=== PATIENT | male | born 1945 | race Caucasian/White ===

== ENCOUNTER → 2016-09-28 | Outpatient (CLI) | payer MEDICARE ==
[2016-09-28 08:52] LABS: ALBUMIN 4.2 g/dL (3.4-5.0); ANION GAP 16.9 MEQ/L (3-15); CALCULATED IONIZED CALCIUM 4.4 mg/dL (3.8-4.6); TOTAL PROTEIN 6.9 g/dL (6.4-8.5)
[2016-09-28 10:06] LABS: BILIRUBIN,URINE Negative (Negative); COLOR,URINE Yellow; GLUCOSE, URINE (UA) Trace (Negative); LEUKOCYTE ESTERASE ,URINE Trace (Negative); UROBILINOGEN,URINE 0.2 mg/dL (0.2-1.0)
[2016-09-28 10:40] LABS: CLARITY,URINE Slightly Cloudy
[2016-09-28 10:42] LABS: URINE CENTRIFUGED VOLUME 12 mL
== END ==
LOC: LAB 08:00
PROVIDERS: ATTEND Internal Medicine Cardiovascular Disease
DX: Z51.81 Encounter for therapeutic drug level monitoring (principal); Z79.01 Long term (current) use of anticoagulants; R30.0 Dysuria; E11.9 Type 2 diabetes mellitus without complications; I25.10 Atherosclerotic heart disease of native coronary artery without angina pectoris; E78.2 Mixed hyperlipidemia; Z79.899 Other long term (current) drug therapy; I10 Essential (primary) hypertension
CPT/HCPCS: 36415; 80053; 81003; 81015; 82550; 83036; 83721; 84100; 84478; 85610; 87077; 87088; 87186

== ENCOUNTER → 2016-10-14 | Outpatient (REF) | payer MEDICARE | LOC: LAB 14:00 | PROVIDERS: ATTEND Internal Medicine | DX: R30.0 Dysuria (principal) | CPT/HCPCS: 87077; 87088; 87186 ==

== ENCOUNTER → 2016-10-28 | Outpatient (CLI) | payer MEDICARE ==
[2016-10-28 09:05] LABS: ANION GAP 15.8 MEQ/L (3-15)
[2016-10-28 11:03] LABS: BILIRUBIN,URINE Negative (Negative); CLARITY,URINE Clear; COLOR,URINE Yellow; GLUCOSE, URINE (UA) Negative (Negative); LEUKOCYTE ESTERASE ,URINE Negative (Negative); PH,URINE 5.5 (5.0 - 8.0); UROBILINOGEN,URINE 0.2 mg/dL (0.2-1.0)
[2016-10-28 11:53] LABS: URINE CENTRIFUGED VOLUME 12 mL
== END ==
LOC: LAB 08:30
PROVIDERS: ATTEND Internal Medicine
DX: I25.10 Atherosclerotic heart disease of native coronary artery without angina pectoris (principal); E11.9 Type 2 diabetes mellitus without complications
CPT/HCPCS: 36415; 80048; 81003; 81015

== ENCOUNTER → 2016-11-03 | Outpatient (CLI) | payer MEDICARE | LOC: RAD 15:49 | PROVIDERS: ATTEND Internal Medicine | DX: R04.2 Hemoptysis (principal) | CPT/HCPCS: 71020 ==

== ENCOUNTER → 2016-11-03 | Outpatient (REF) | payer MEDICARE ==
[2016-11-03 16:54] LABS: BASOPHILS % (AUTO) 0 % (0-2); EOSINOPHILS # (AUTO) 0.3 10^3uL; EOSINOPHILS % (AUTO) 4 % (0-4); LYMPHOCYTES # (AUTO) 0.8 X10^3; MEAN CORPUSCULAR HEMOGLOBIN 28.8 PG (26.0-34.0); MEAN CORPUSCULAR HGB CONC 34.3 g/dL (31.0-37.0); MEAN CORPUSCULAR VOLUME 84 FL (80-100); MEAN PLATELET VOLUME 11.2 FL (6.0-9.5); MONOCYTES # (AUTO) 0.9 X10^3; MONOCYTES % (AUTO) 13 % (3-11); NEUTROPHILS # (AUTO) 5.3 X10^3; NEUTROPHILS % (AUTO) 72 % (51-67); PLATELET COUNT 239 10^3uL (150-450); WHITE BLOOD COUNT 7.37 10^3uL (4.0-11.0)
== END ==
LOC: LAB 16:41
PROVIDERS: ATTEND Internal Medicine
DX: R04.2 Hemoptysis (principal)
CPT/HCPCS: 85025

== ENCOUNTER → 2016-11-21 | Outpatient (CLI) | payer MEDICARE ==
[~2016-11-21] MED LIST: ALBU6.7H IH; AMOX500C5 PO; ASPI-479 PO; ATOR80TA PO; GFN600TCR PO; HYDR-3702 PO; INSU100I30 SQ; INSU100V32 SQ; LOSA100T3 PO; MECL-105 PO; METF500T PO; METF500T3 PO; METO-274 PO; NF-FLON16G NSEACH; ONDAN4ODT PO; PRD20T PO; TAMS0.4C2 PO; WARF5TAB PO; WARF5TAB6; WARF7.5T3 PO; WRF5T PO
--- NOTE | 2016-11-21 12:45 | Diagnostic Imaging Report ---
PROCEDURE: CT chest without contrast. TECHNIQUE: Multiple contiguous axial images were obtained through the chest without the use of intravenous contrast. INDICATION: Hemoptysis, dyspnea. COMPARISON: None. DISCUSSION: Images were obtained in the prone and supine position. Patchy groundglass opacities are noted within the periphery of the bilateral lung bases, which is a nonspecific finding and could be seen with atelectasis, pneumonia, or inflammation. There is trace bronchiectasis noted within the bilateral lungs. There is no suspicious mass or pulmonary nodule identified. No evidence of air trapping. Normal heart size. No pleural or pericardial fluid. The visualized upper abdomen is unremarkable. Left-sided pacemaker is present. Age-related degenerative changes are noted throughout the thoracic spine. Median sternotomy is present. Atherosclerotic disease is noted within the aorta and coronary arteries. The aorta is normal in caliber and configuration otherwise. There are shotty mediastinal adenopathy, none of which appears to be pathologically enlarged. No axillary adenopathy. IMPRESSION: 1. Groundglass opacities within the periphery of the bilateral lung bases as discussed above. No suspicious pulmonary lesion otherwise identified. Dictated by: Dictated on workstation # [id number]
== END ==
LOC: RAD 10:44
PROVIDERS: ATTEND Internal Medicine
DX: R04.2 Hemoptysis (principal)
CPT/HCPCS: 71250; 87205

== ENCOUNTER → 2016-11-22 | Outpatient (CLI) | payer MEDICARE | LOC: LAB 07:13 | PROVIDERS: ATTEND Internal Medicine | DX: Z53.9 Procedure and treatment not carried out, unspecified reason (principal) ==

== ENCOUNTER → 2016-12-29 | Outpatient (CLI) | payer MEDICARE | LOC: LAB 06:58 | PROVIDERS: ATTEND Internal Medicine Sleep Medicine | DX: R91.8 Other nonspecific abnormal finding of lung field (principal); R05 Cough | CPT/HCPCS: 36415; 82565; 84520 ==

== ENCOUNTER → 2016-12-30 | Outpatient (CLI) | payer MEDICARE | LOC: RAD 06:50 | PROVIDERS: ATTEND Internal Medicine Sleep Medicine | DX: Z53.9 Procedure and treatment not carried out, unspecified reason (principal) ==

== ENCOUNTER → 2017-01-02 | Outpatient (CLI) | payer MEDICARE ==
--- NOTE | 2017-01-02 08:00 | Diagnostic Imaging Report ---
PROCEDURE: CT chest without contrast. TECHNIQUE: Multiple contiguous axial images were obtained through the chest without the use of intravenous contrast. INDICATION: Abnormal chest radiograph, cough, coughing up blood two weeks ago. COMPARISON STUDY: CT of the chest from November 21. FINDINGS: The examination demonstrates no pulmonary masses, pleural effusions or abnormal adenopathy. 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 The heart size is normal. Visualized portions of the abdomen demonstrate multiple small gallstones without inflammation. Peripheral based infiltrates somewhat groundglass appearance are seen posteriorly in both lungs. These have slightly worsened. IMPRESSION: 1. There are bilateral pleural-based infiltrates, mainly posteriorly in both lungs which have slightly worsened. 2. 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 3. Cholelithiasis. Dictated by: Dictated on workstation # [id number]
== END ==
LOC: RAD 06:58
PROVIDERS: ATTEND Internal Medicine Sleep Medicine
DX: R91.8 Other nonspecific abnormal finding of lung field (principal); R05 Cough
CPT/HCPCS: 71250